=== PATIENT | female | born 1985 | race Caucasian/White ===

== ENCOUNTER 2021-01-10 10:08 | Emergency (ER) | payer OTHER, SELFPAY ==
[2021-01-10 10:16] VITALS: BP 122/54; PULSE 73; RESP 14; TEMP 36.6; O2SAT 100
--- NOTE | 2021-01-10 10:31 | ED.EAR ---
HPI - Ear Problem General Chief complaint: Ear Stated complaint: Ear Pain/Fever Source: patient Mode of arrival: ambulatory Limitations: no limitations History of Present Illness HPI Narrative: Patient reports left ear pain with drainage x 1 day. Reports sore throat, fever, chills and body aches. Reports lost of taste. Patient reports sent home from work with a fever on . She reports vomiting x1. She denies Covid vaccination. She denies known exposure. MD Complaint: other (Sore throat, chills, body aches, fever) Related Data Home Medications Medication Instructions Recorded Confirmed aspirin [Adult Low Dose Aspirin] 81 mg PO DAILY 01/10/21 01/10/21 fluoxetine [Prozac] 60 mg PO DAILY 01/10/21 01/10/21 Allergies Allergy/AdvReac Type Severity Reaction Status Date / Time No Known Allergies Allergy Verified 01/10/21 10:24 Review of Systems Review of Systems: CONSTITUTIONAL: Reports fever, chills, or sweats. EYES: Denies visual changes, redness, or discharge. ENT: Reports congestion, sore throat, and otalgia. Reports loss of taste. CARDIOVASCULAR: Denies chest pain, palpitations, or edema. RESPIRATORY: Denies cough or dyspnea. GASTROINTESTINAL: Denies abdominal pain, reports nausea, and vomiting x1 GENITOURINARY: Denies dysuria or hematuria. SKIN: Denies rash or itching. MUSCULOSKELETAL: Denies back pain, joint pain, or myalgia. NEUROLOGIC: Denies headache, numbness, dizziness, or weakness. PSYCHIATRIC: Denies anxiety or depression. [facility] Past Medical History Medical History No significant past medical history Surgical History Surgical History No significant past surgical history Social History Social History (Updated 01/10/21 @ 10:49 by FRANK Elizabeth) Smoking status: Current every day smoker Alcohol use details: occassional Substance use: never Living arrangements: with family Occupation/Education: occupation Comments At the time of signature, I have reviewed and agree with nursing past medical, surgical, social, and family history unless otherwise noted. Please see nursing chart for further information. There is no relevant family history pertinent to the presenting complaint. Exam Narrative: GENERAL: Well-appearing, well-nourished, and in no acute distress. HEAD: Normocephalic, atraumatic. EYES: EOMI. No redness or drainage. Conjunctiva are normal. ENT: Mucous membranes pink and moist. Nares clear. No rhinorrhea. TMs normal bilaterally. Throat mild erythema. Uvula midline. NECK: AROM. Supple. No lymphadenopathy. CHEST: No respiratory distress. HEART: Regular rate and rhythm. MUSCULOSKELETAL: No bony tenderness. EXTREMITIES: Normal range of motion. No edema. SKIN: Warm, dry, no rash. NEURO: No focal deficits. Alert and oriented x3. Gait steady. PSYCH: Normal affect. No signs of depression or anxiety. Course Vital Signs Vital signs: Vital Signs Temperature 36.6 C 01/10/21 10:16 Pulse Rate 73 01/10/21 10:16 Respiratory Rate 14 01/10/21 10:16 Blood Pressure 122/54 L 01/10/21 10:16 Pulse Oximetry 100 01/10/21 10:16 Temperature 36.6 C 01/10/21 10:16 Pulse Rate 73 01/10/21 10:16 Respiratory Rate 14 01/10/21 10:16 Blood Pressure 122/54 L 01/10/21 10:16 Pulse Oximetry 100 01/10/21 10:16 Reviewed Medical Decision Making MDM Narrative Medical decision making narrative: Patient's rapid Covid is negative. Covid PCR sent at this time. Patient is aware of quarantine. Discussed symptomatic treatment. Patient is stable for discharge home with outpatient follow-up as discussed. Differential Diagnosis Differential Diagnosis: Covid, viral illness, pharyngitis, otitis media Vital Signs Vital Signs: Vital Signs Temperature 36.6 C 01/10/21 10:16 Pulse Rate 73 01/10/21 10:16 Respiratory Rate 14 01/10/21 10:
[2021-01-11 19:11] LABS: SARS-CoV-2 RNA PCR Negative
== END 2021-01-10 11:24 | disposition home or self-care (01) ==
PROVIDERS: Emergency Provider Nurse Practitioner; PCP Nurse Practitioner
DX: J06.9 Acute upper respiratory infection, unspecified (principal); Z20.822 Contact with and (suspected) exposure to COVID-19; F17.200 Nicotine dependence, unspecified, uncomplicated
CPT/HCPCS: 87426; 99213; C9803; G0463; U0003; U0005

== ENCOUNTER 2021-04-20 10:26 | Emergency (ER) | payer OTHER, SELFPAY ==
[2021-04-20 10:36] VITALS: BP 122/74; PULSE 58; RESP 16; TEMP 36.3; O2SAT 100
--- NOTE | 2021-04-20 10:36 | ED.ABDPAIN ---
HPI - Abdominal Pain General Chief Complaint: Abdominal Pain Stated Complaint: possible stomach bug, abdominal pain, chills Time Seen by Provider: 04/20/21 10:37 Source: patient and RN notes reviewed History of Present Illness HPI narrative: Patient is a 35-year-old female who presents the urgent care with complaints of nausea, vomiting and abdominal pain since Monday. Patient states that she was at the [employer] and ate a salad which tasted terrible and within 30 minutes she was having extreme chills and abdominal pain with nausea. Patient states that she has a history of ileus and Crohn's. Patient has been taking Pepto-Bismol and Imodium. States that she did have a fever yesterday. No other acute complaints. No acute distress noted. Patient aware of the plan of care. Some parts of this dictation were generated by voice recognition software and may contain typographical and/or grammatical inaccuracies. Related Data Home Medications Medication Instructions Recorded Confirmed fluoxetine [Prozac] 60 mg PO DAILY 01/10/21 01/10/21 famotidine 20 mg PO DAILY 04/20/21 04/20/21 gabapentin 600 mg PO TID 04/20/21 04/20/21 Allergies Allergy/AdvReac Type Severity Reaction Status Date / Time No Known Allergies Allergy Verified 04/20/21 10:45 Review of Systems Review of Systems: CONSTITUTIONAL: Denies fever, chills, or sweats. EYES: Denies visual changes, redness, or discharge. ENT: Denies rhinorrhea, congestion, sore throat, or otalgia. CARDIOVASCULAR: Denies chest pain, palpitations, or edema. RESPIRATORY: Denies cough or dyspnea. GASTROINTESTINAL: Reports of nausea, vomiting, diarrhea and abdominal pain/cramping GENITOURINARY: Denies dysuria or hematuria. SKIN: Denies rash or itching. MUSCULOSKELETAL: Denies back pain, joint pain, or myalgia. NEUROLOGIC: Denies headache, numbness, or weakness. All other systems reviewed are negative, except as documented in HPI. [facility] Past Medical History Medical History No significant past medical history Surgical History Surgical History No significant past surgical history Social History Social History (Updated 12/05/21 @ 10:49 by Latasha Brownlee, [facility]) Smoking status: Current every day smoker Alcohol use details: occassional Substance use: never Comments At the time of my signature, I reviewed and agree with the nursing past medical, surgical, social, and family history. There is no relevant family history pertinent to the patient complaint. Exam Narrative: GENERAL: This is a well-nourished, well-developed patient, in no apparent distress. HEAD: normocephalic, atraumatic. EYES: PERRL. Sclera clear/white. Vision is grossly intact. EARS: External ears normal NOSE: External nose normal with no obvious nasal discharge, nares without redness, no rhinorrhea. THROAT: Mucous membranes moist NECK: Neck supple CARDIOVASCULAR: Regular rate and rhythm without murmurs, gallops, or rubs. RESPIRATORY: Clear to auscultation. Breath sounds equal bilaterally. No wheezes, rales, or rhonchi. GASTROINTESTINAL: Diffuse abdominal tenderness more focused to mid abdomen, guarding, hyperactive bowel sounds, active vomiting and diarrhea SKIN: warm, intact with no suspicious lesions or rash, good texture and turgor. NEURO: awake, alert, and oriented to person, place and time. There were no obvious focal neurologic abnormalities. EXTREMITIES: No clubbing, cyanosis, or edema. Course Course Level of Care: Express Care Visit Vital Signs Vital signs: Vital Signs Temperature 97.3 F L 04/20/21 10:36 Pulse Rate 58 L 04/20/21 10:36 Respiratory Rate 16 04/20/21 10:36 Blood Pressure 122/74 04/20/21 10:36 Pulse Oximetry 100 04/20/21 10:36 Temperature 97.3 F L 04/20/21 10:36 Pulse Rate 58 L 04/20/21 10:36 Respiratory Rate 16 04/20/21 10:36 Bloo
== END 2021-04-20 10:58 | disposition short-term general hospital (02) ==
PROVIDERS: Emergency Provider Nurse Practitioner Family
DX: R10.9 Unspecified abdominal pain (principal); F17.200 Nicotine dependence, unspecified, uncomplicated
CPT/HCPCS: 99212; G0463

== ENCOUNTER 2024-12-16 02:17 | Emergency (ER) | payer OTHER, SELFPAY ==
--- OUTSIDE RECORDS SUMMARY | 2023-11-06 07:00 | XMS_ITS ---
Author Organization [facility] Address [address] [place] [address] Care Team Providers Care Carton Forming Machine Operator Name Role Phone Eros Bennett Primary Care Provider [phone] Paige Garcia Unavailable [phone] Moraima George Unavailable [phone] REASON FOR VISIT CRU - Est Psych last seen in 2021, recent SA Encounters Encounter Location Date Provider Diagnosis [address] [place] [address] 11/06/2023 Moraima George Plan Of Treatment No Information Progress Notes * Michelle REALsDOB:1985 (39 yo F)Acc No.[id number]:11/06/2023 UNLOCKED PROGRESS NOTE Patient: Norma BOOTHE Provider: Ian George, DNP, POWER CRANE OPERATOR, SPECIAL CRIMES INVESTIGATOR-C :1985 A ge:38 Y S ex:Female Date:11/06/2023 Address:[address] [place], [place] [id number] Pcp:Eros Bennett Subjective: * Chief Complaints: * 1 . CRU - Est Psych last seen in 2021, recent SA. * Medical History: Objective: * Vitals: Assessment: Plan: * Treatment: * * Electronic signature of Julio George , [id number] on 12/16/2024 at 02:19 AM SENIOR SOFTWARE QA ANALYST Sign off status: Pending * Provider: Ian George DNP, POWER CRANE OPERATOR, SPECIAL CRIMES INVESTIGATOR-C Date: 0 11/06/2023 Generated for Printing/Faxing/eTransmitting on: 02/16/2024 02:19 AM SENIOR SOFTWARE QA ANALYST
--- NOTE | ~2024-12-16 | XR_ITS ---
Examination: XR chest 2V Clinical History: sob Comparison: None Technique: PA and Lateral Findings: Cardiomediastinal silhouette normal size and configuration. Lungs clear. No acute bony abnormality. IMPRESSION: 1. No acute cardiopulmonary findings. Reviewed, dictated and finalized at location R. WORKER
--- OUTSIDE RECORDS SUMMARY | 2024-12-16 02:19 | XMS_ITS | Clinical Summary ---
Author Organization [facility] Address [address] [place] [address] Care Team Providers Care Enterprise Analyst Name Role Phone Jaquelin Chiang Unavailable [phone] Allergies Active Allergy Reactions Criticality Noted Date Comments Cat Dander Rhinitis Low 07/15/2016 Pollen Extracts Rhinitis Low 07/15/2016 Medications gabapentin (NEURONTIN) 600 mg tablet Take 1 tablet (600 mg total) by mouth 3 (three) times a day 2 8 Active aspirin 81 mg enteric coated tablet Take by mouth 0 Active albuterol HFA (PROVENTIL HFA,VENTOLIN HFA,PROAIR HFA) 90 mcg/actuation inhaler 3 Active ofloxacin (FLOXIN) 0.3 % otic solution 3 Active sertraline (ZOLOFT) 25 mg tabletIndication s:Major depressive disorder with single episode, in full remission Take 1 tablet (25 mg total) by mouth daily 90 tablet 4 3 Active clobetasoL (TEMOVATE) 0.05 % external solutionIndicati ons:Dermatosis of the Scalp Apply topically 2 (two) times a day 50 mL 2 3 Active clindamycin (CLEOCIN T) 1 % lotionIndication s:Hidradenitis suppurativa Apply topically 2 (two) times a day As needed for painful cysts 60 mL 3 3 Active triamcinolone (KENALOG) 0.5 % ointment Apply topically 2 (two) times a day APPLY TO AFFECTED AREA 3 Active ketoconazole (NIZORAL) 2 % shampoo SHAMPOO DAILY LEAVE ON FOR 5-10 MINUTES, THEN RINSE 120 mL 4 Active ibuprofen (ADVIL,MOTRIN) 800 mg tablet TAKE 1 TABLET BY MOUTH EVERY 6 HOURS NEEDED FOR PAIN. 30 tablet 4 Active Active Problems Problem Noted Date Diagnosed Date Affective psychosis 02/13/2023 Constipation 02/13/2023 Neuropathy 02/13/2023 Neuropathy of both upper extremities 02/13/2023 Obesity (BMI 30.0-34.9) 02/13/2023 Tobacco dependence 02/13/2023 Anxiety disorder 02/13/2023 PTSD (post-traumatic stress disorder) 09/06/2021 Assessment & Plan (09/06/2021 11:33 AM CDT): THC has worked for her condition before Chronic pain syndrome 09/06/2021 Assessment & Plan (09/06/2021 11:33 AM CDT): Continue gabapentin Foot sprain, left, initial encounter 06/07/2021 Assessment & Plan (06/07/2021 1:41 PM CDT): Needs extend time to help recover Instructed to continue boot and icing it She understands and will continues this Major depressive disorder wi th single episode, in full remission 04/02/2021 Assessment & Plan (09/06/2021 11:33 AM CDT): Will contnue prozac Refilling THC medical card Assessment & Plan (04/02/2021 1:58 PM ANTIQUE DEALER): Takes prozac 20 mg Also uses medical THC for sleep Right carpal tunnel syndrome 01/11/2021 Assessment & Plan (01/11/2021 1:45 PM ANTIQUE DEALER): By EMG nerve conduction study the patient has moderate to severe median neuropathy at the wrist with the intact ulnar nerve. Would recommend carpal tunnel release as she has had progressive symptoms over a year and is now developing some motor weakness in the hand which may be less reversible. She was advised the risks of the procedure including infection, incisional numbness, seroma hematoma formation, neurovascular compromise, damage to the median nerve/recurrent branch of the median nerve, blood loss blood clots, keloid formation wound dehiscence, medical and anesthetic risks including is willing to proceed. Crohn's disease with complication 07/18/2018 Overview (01/11/2021): Dx in 2011 Encounter for ultrasound 07/18/2018 Hx of drug abuse 07/18/2018 Overview (01/11/2021): Cocaine use Marijuana use 07/18/2018 Rh negative state in antepartum period 9 Dysthymia 05/24/2016 Resolved Problems Problem Noted Date Diagnosed Date Resolved Date High ankle sprain, right, initial encounter 05/31/2021 05/31/2021 Hx of myocardial infarction 07/18/2018 06/17/2021 Immunizations Immunization Administration Dates Next Due DTP 09/27/1991, 0,07/14/1989, 7,04/18/1985 Hep B, Adolescent or Pediatric 05/20/1996,1995,09/20/1995 Influenza, Unspecified 05/05/2022(Deferr ed: Patient Refused),12/07/2021(Deferred: Patient Refused),04/02/2021(Deferred: Patient Refused) MMR 09/27/1991,09/08/1989 OPV 10/12/1989, 0,04/22/1986, 6 Pneumococcal Polysaccharide PPV23 12/02/2013 Td, adsorbed 08/30/1999 Tdap 07/16/2018 Surgical History Surgery Date Site/Laterality Comments TONSILLECTOMY COLONOSCOPY UPPER GASTROINTESTINAL ENDOSCOPY CARPAL TUNNEL RELEASE 02/02/2021 Right Medical History Medical History Date Comments Myocardial infarction (HCC) In t he setting of cocaine abuse Anxiety PTSD (post-traumatic stress disorder) Bipolar affective disorder (HCC) Hypertension Crohn's disease (HCC) Family History Medical History Relation Name Comments Cancer Father Coronary artery disease Father Prostate cancer Father Coronary artery disease Mother Heart disease Mother Hyperlipidemia Mother Relation Name Status Comments Father Alive Mother Alive Social History Tobacco Use Types Packs/Day Years Used Date Smoking Tobacco: Every Day Cigarettes 0.8 3 Smokeless Tobacco: Never Tobacco Cessation:Ready to Q uit: Not Asked; Counseling Given: Not Answered Alcohol Use Standard Drinks/Week Comments Not Currently 0 (1 standard drink = 0.6 oz pur e alcohol) AUDIT-C Answer Date Recorded Frequency of Alcohol Consumption Not on file 08/01/2022 Q2: How many drinks containi ng alcohol do you have on a typical day when you are drinking? Patient does not drink Frequency of Binge Drinking Not on file 07/08 PHQ-2 Answer Date Recorded PHQ-2 Total Score (If total score is 3 or more points, staff should administer the PHQ-9) 3 08/01/2022 Hunger Vital Sign Answer Date Recorded Within the past 12 months, y ou worried that your food would run out before you got the money to buy more. Sometimes true Within the past 12 months, t he food you bought just didn't last and you didn't have money to get more. Sometimes true Personal Safety Answer Date Recorded Have you ever been in or are you currently in a harmful physical or emotional relationship or is someone making you feel afraid or unsafe? Denies 05/06/2022 Comments No Sex and Gender Information Value Date Recorded Sex Assigned at Not on file Legal Sex Female 10:41 AM ANTIQUE DEALER Gender Identity Not on file Sexual Orientation Bisexual 04/19/2021 11 :03 AM CDT Sexual Orientation Lesbian 04/19/2021 11 :03 AM CDT Last Filed Vital Signs Vital Sign Reading Time Taken Comments Blood Pressure 110/90 02/13/2023 4:53 PM ANTIQUE DEALER Pulse 110 02/13/2023 4:53 PM ANTIQUE DEALER Temperature 36.7 C (98.1 F) 02/13/2023 4:53 PM ANTIQUE DEALER Respiratory Rate 20 02/13/2023 4:53 PM ANTIQUE DEALER Oxygen Saturation 98% 02/13/2023 4:53 PM ANTIQUE DEALER Inhaled Oxygen Concentration - - Weight 72.6 kg (160 lb) 02/13/2023 4:53 PM ANTIQUE DEALER Height 160 cm (5' 3) 02/13/2023 4:53 PM ANTIQUE DEALER Body Mass Index 28.34 02/13/2023 4:53 PM ANTIQUE DEALER Plan of Treatment Health Maintenance Due Date Last Done Comments Breast Cancer Screening-Mammogram 1985 Cervical Cancer Screening 1985 Hepatitis C Screening 1985 HPV Vaccines (1 - 3-dose SCD M series) 06/03/2011 Pneumococcal vaccine <65 (2 of 2 - PCV) 12/02/2014 12/02/2013 Regular Well Visit/Exam 18-64 04/02/2022 04/02/2021 Influenza Vaccine (#1) 2024 DTaP/Tdap/Td Vaccine (6 - Td or Tdap) 07/16/2028 07/16/2018, 08/30/1999, 09/27/1991, Additional history exists Hepatitis B Screening Completed 05/20/1996 , 11/29/1995, 09/20/1995 Depression Screening Discontinued 08/01/2022, 05/05/2022, 05/05/2022, Additional history exists Varicella Vaccines Discontinued Insurance [employer] [facility] [place] [employer] [place] Care Teams Enterprise Analyst Relationship Specialty [place] [address] [address] Physician Sh[employer] Orthopedic Surgery 02/02/21
--- OUTSIDE RECORDS SUMMARY | 2024-12-16 02:20 | XMS_ITS | Patient Health Record ---
Author Organization [facility] Address [address] [place] [address] Care Team Providers Care Melt Superintendant Name Role Phone Ricardo Atkins Primary Care Provider Results Component Value Reference Range Notes X ray : Dental, PA - First Reviewed date:01/09/2024 08:32:22 AM Interpretation: Performing Lab: Notes/Report: Reason For Referral No Information Social History Tobacco Use: Social History Observation Description Date Details (start date - stop date) Current Smoker NA - NA Social History Tobacco Use: Social Info Question Answer Notes Tobacco Control (Standard) Tobacco use: Current smoker Vital Signs Blood pressure diastolic 84 mm Hg 01/09/2024 Blood pressure systolic 129 mm Hg 01/09/2024 Encounters Encounter Location Date Provider Diagnosis [address] [address] 01/09/2024 Ricardo Atkins Dental examination Z01.20 and Caries K02.9 Assessments Encounter Date Diagnosis (ICD Code) Assessment Notes Treatment Notes Treatment Clinical Notes Section Notes 01/09/2024 Caries (ICD-10 - K02.9) 01/09/2024 Dental examination (ICD-10 - Z01.20) Plan Of Treatment No Information Insurance Providers Payer Name Payer Address Payer Phone Subscriber Number Group Number Insured Name Patient Relationship to Insured Coverage Start Date [facility]age End Date [facility] [address] [place] [address] [id number] Norma Reese Self - patient is the insured Medical (General) History Medical History History ICD Code Substance use disorder
--- OUTSIDE RECORDS SUMMARY | 2024-12-16 02:20 | XMS_ITS ---
Author Organization [facility] Address [address] [place] [address] Phone Care Team Providers Care Animal Care Service Worker Name Role Phone Castillo Arteaga MD Primary Care Provider [phone] [facility] Status:Enrolled (Active) Start date:03/06/2024 Enrollment date:03/06/2024 Related social drivers of health:Social Connections, Alcohol Use, Tobacco Use, Financial Resource Strain, Depression, Stress, Physical Activity, Food Insecurity, Transportation Needs, Housing Stability, Utilities Continued Care and Services Coordination
--- OUTSIDE RECORDS SUMMARY | 2024-12-16 02:20 | XMS_ITS | Data Portability ---
Author Organization [facility] Address [address] [place] [address] Assessment Encounter Date Assessment Date Assessment LastModified by Organization Details LastModified Time 06/24/2014 06/24/[address] Sumner for her Lft inguinal abscess / [email or web address] Not available 06/24/2014 12:06:10 07/18/2014 07/18/2014 STI screening all labs reviewed with pt aware of their nature and indications for repeat testing--Pt opted to RTO in 3 mos and have tests repeated as ordered. Copies of all labs printed to patient at her request. [email or web address] Not available 07/18/2014 15:18:01 02/09/2018 02/09/2018 32yo at unknown gestation here for initial OB visit, no acute issues. [email or web address] Not available 02/09/2018 23:13:01 Plan of Treatment Reminders Order Date Submit Date Provider Last Modified By Organization Details Last Modified Time Details Appointments None recorded. Lab hsv (1+2) igg Ab, serum 2024 025 [facility] (Lab), [address] [place], [address], 5 08:11:21 urinalysis , dipstick 2024 025 [email or web address] In-Office Order, Internal Use Only DO Not Attach Compendium DO Not Attach Compendium, Do Not Delete/merge, [id number] 5 12:04:50 vaginal pathogens panel, LOCO+probe, vaginal fluid 2024 025 [facility], [address], [address], [place], [address], 5 07:14:25 test, urine 2018 019 [email or web address] In-Office Order, Internal Use Only DO Not Attach Compendium DO Not Attach Compendium, Do Not Delete/merge, [id number] 9 16:52:07 urinalysis , dipstick 2018 019 [email or web address] In-Office Order, Internal Use Only DO Not Attach Compendium DO Not Attach Compendium, Do Not Delete/merge, [id number] 9 16:52:07 type + screen, serum 2018 019 [facility] (Lab), [address], [place], [address], 9 23:25:14 CBC w/ auto diff 2018 019 [facility] (Lab), [address], [place], [address], 9 19:27:22 hemoglobin S (hbs), presence, blood 2018 019 [facility] (Lab), [address], [place], [address], 9 16:10:36 HIV (1+2) Ab screen, serum 2018 019 [facility] (Lab), [address], [place], [address], 9 08:19:06 RPR (rapid plasma reagin), serum 2018 019 [facility] (Lab), [address], [place], [address], 9 08:18:59 HBsAg (hepatitis B surface Ag), serum 2018 019 [facility] (Lab), [address], [place], [address], 9 08:19:00 CT + NG + TV, DNA, urine/swab 2018 019 [facility] (Lab), [address], [place], [address], 9 16:15:25 drug screen, urine 2018 019 [facility] (Lab), [address], [place], [address], 9 20:42:37 cf (cystic fibrosis) profile 2018 019 [facility] (Lab), [address], [place], [address], 9 19:08:24 culture, urine 2018 019 [facility] (Lab), [address], [place], [address], 9 15:12:35 rubella igg Ab screen, serum 2018 019 [facility] (Lab), [address], [place], [address], 9 07:11:09 pap, IG + CT/NG + reflex HPV (16+18) 2018 019 [facility] (Lab), [address], [place], [address], 9 13:12:28 HIV (1+2) Ab screen, serum 2014 016 [email or web address] [facility], [address] [facility], [address], [address], 6 10:55:13 hsv (1+2) igg, serum 2014 016 [email or web address] [facility], [address], [place], [address], 6 10:55:24 CT + NG + TV, DNA, urine/swab 2014 016 [facility], [address] [facility] [address], [place], [address], 6 10:55:48 RPR (rapid plasma reagin), serum 2014 016 [email or web address] [facility], [address] [facility] [address], [address], [place], [address], 6 10:55:57 hepatitis panel (A+B+C), acute, serum 2014 016 [email or web address] [facility], [address] [facility], [address], [place], [address], 6 10:56:04 pap, IG + CT/NG/TV + reflex HR HPV if ASC-U, ASC-H, LSIL, HSIL, PARISH 2014 015 MANNY [facility], [address], [place], [address], 5 14:24:07 hsv (1+2) igg, serum 2014 015 MANNY [facility], [address] [facility] [address], [place], [address], 5 17:34:49 HIV (1+2) Ab screen, serum 2014 015 MANNY [facility], [address], [place], [address], 5 17:49:58 RPR (rapid plasma reagin), serum 2014 015 [facility], [address] [facility], [address], [place], [address], 5 17:30:35 hepatitis panel (A+B+C), acute, serum 2014 015 [facility], [address] [facility], [address], [place], [address], 5 18:01:24 Referral None recorded. Procedures None recorded. Surgeries None recorded. Imaging US, obstetric, 1st trimester - uncertain LMP; early u/s for dating/via bility 2018 019 [email or web address] Not available 9 15:04:16 Medication Orders ondansetro n HCl 4 mg tablet 2018 019 INTERFACE [id number], [address], [place], [id number], 9 17:13:01 promethazi ne 12.5 mg tablet 2018 019 INTERFACE [facility] #[id number], [address], [place], [id number], 9 17:12:59 28 mg iron-800 mcg tablet 2018 019 INTERFACE [facility] #[id number], [address], [place], [id number], 9 17:13:00 Patient TargetsNo targets recorded. Patient Instructions Encounter Date Encounter Id Patient Instructions Last Modified By Organization Details Last Modified Time 06/24/2014 [id number] skin abscess: care instructions [email or web address] Not available 06/24/2014 17:56:44 08/08/2024 [id number] A healthy lifestyle: care instructions Not available 08/08/2024 12:04:50 - You were teste d for gonorrhea, chlamydia, trichomonas, syphilis, HIV, BV, and yeast. You will receive a call with results in 2-3 days. - Your urine test did not show a UTI and your test was negative. -Please return to [facility] if you develop any lesions. - Go to the ER if you develop a fever, abdominal pain, or abnormal vaginal bleeding. Not available 08/08/2024 12:05:52 08/20/2024 [id number] genital herpes: care instructions [email or web address] Not available 08/20/2024 17:00:54 A healthy lifestyle: care instructions [email or web address] Not available 08/20/2024 17:00:54 Take medicines exactly as prescribed. If your doctor prescribed antibiotics, take them as directed. Don't stop taking them just because you feel better. You need to take the full course of antibiotics. Tell your sex partner or partners that they will need treatment. For certain STIs, your doctor may be able to prescribe treatment for any partners also. Don't have sexual contact while you have symptoms of an STI or are being treated for an STI. Don't douche. Douching changes the normal balance of bacteria in your vagina. It may increase the risk of spreading the infection to your uterus or other reproductive organs. How can you prevent it? Here are some ways to help prevent STIs: Limit your sex partners. Sex with one partner who has sex only with you can reduce your risk of getting an STI. Talk with your partner or partners about STIs before having sex. Find out if they are at risk for an STI. It's possible to have an STI and not know it. Wait to have sex with a new partner until you've each been tested. Don't have sex if you have symptoms of an infection or if you're being treated for an STI. Use a condom every time you have sex. If you had sex without a condom, ask your doctor if taking a preventive medicine is recommended. It may help prevent certain STIs if it's taken within 24 to 72 hours after unprotected sex. Don't share sex toys. But if you do share them, use a condom and clean the sex toys between each use. Don't feel pressure to have sex. It's okay to say no anytime you want to stop. Make sure you feel safe with your partner or partners. If you don't, talk with an adult you trust. [email or web address] Not available 08/20/2024 17:06:55 Reason for Referral None Reported. Results Created Date Observation Date Name Description Value Unit Range Abnormal Flag Note LastModifiedBy Organization Detail LastModifiedTime 02/09/19 19 02/09/2018 CBC w/ auto diff WBC 10.7 K/uL 3.4-10 .8 Not Available [facility] (Lab) [address] [place], [address], 02/09/2018 19:27:22 02/09/1902/09/2018 CBC w/ auto diff red blood count 3.7 M/uL 4.2-5. 4 low Not Available [facility] (Lab) [address] [place], [address], 02/09/2018 19:27:22 02/09/1902/09/2018 CBC w/ auto diff hemoglobin 11.3 g/dL 11.5-1 5.5 low Not Available [facility] (Lab) [address], [place], [address], 02/09/2018 19:27:22 02/09/1902/09/2018 CBC w/ auto diff hematocrit 33.4 % 36.0-4 8.0 low Not Available [facility] (Lab) [address] [place], [address], 02/09/2018 19:27:22 02/09/1902/09/2018 CBC w/ auto diff MCV 91 fL 80-95 Not Available [facility] (Lab) [address] [place], [address], 02/09/2018 19:27:22 02/09/1902/09/2018 CBC w/ auto diff MCH 31 pg 27-32 Not Available [facility] (Lab) [address] [place], [address], 02/09/2018 19:27:22 02/09/1902/09/2018 CBC w/ auto diff MCHC 34 g/dL 32-36 Not Available [facility] (Lab) [address] [place], [address], 02/09/2018 19:27:22 02/09/19 19 02/09/2018 CBC w/ auto diff platelets 328 K/uL 155-37 9 Not Available [facility] (Lab) [address] [place], [address], 02/09/2018 19:27:22 02/09/1902/09/2018 CBC w/ auto diff RDW 13.3 % 11.5-1 4.5 Not Available [facility] (Lab) [address] [place], [address], 02/09/2018 19:27:22 02/09/1902/09/2018 CBC w/ auto diff MPV 10.6 fL 8.9-12 .7 Not Available [facility] (Lab) [address] [place], [address], 02/09/2018 19:27:22 02/09/1902/09/2018 CBC w/ auto diff neutrophils absolute 7.8 K/uL 1.4-7. 0 high Not Available [facility] (Lab) [address], [place], [address], 02/09/2018 19:27:22 02/09/1902/09/2018 CBC w/ auto diff lymphs (absolute) 1.9 K/uL 0.7-3. 1 Not Available [facility] (Lab) [address] [place], [address], 02/09/2018 19:27:22 02/09/1902/09/2018 CBC w/ auto diff monocytes (absolute) 0.7 K/uL 0.1-0. 9 Not Available [facility] (Lab) [address] [place], [address], 02/09/2018 19:27:22 02/09/1902/09/2018 CBC w/ auto diff eos (absolute) 0.2 K/uL 0.0-0. 4 Not Available [facility] (Lab) [address] [place], [address], 02/09/2018 19:27:22 02/09/1902/09/2018 CBC w/ auto diff baso (absolute) 0.0 K/uL 0.1-0. 3 low Not Available [facility] (Lab) [address] [place], [address], 02/09/2018 19:27:22 02/09/1902/09/2018 CBC w/ auto diff neut % 73.3 % 40.0-7 4.0 Not Available [facility] (Lab) [address] [facility], [place], [address], 02/09/2018 19:27:22 02/09/1902/09/2018 CBC w/ auto diff lymphs % 18.2 % 14.0-4 6.0 Not Available [facility] (Lab) [address] [facility], [place], [address], 02/09/2018 19:27:22 02/09/1902/09/2018 CBC w/ auto diff mono % 6.1 % 4.0-12 .0 Not Available [facility] (Lab) [address] [place], [address], 02/09/2018 19:27:22 02/09/1902/09/2018 CBC w/ auto diff eos % 2 % <=5 Not Available [facility] (Lab) [address] [place], [address], 02/09/2018 19:27:22 02/09/1902/09/2018 CBC w/ auto diff baso % 0.4 % 0.1-1. 1 Not Available [facility] (Lab) [address] [place], [address], 02/09/2018 19:27:22 02/09/1902/09/2018 drug scree n, urine urine phencylclind in NEGATI VE negati ve Not Available [facility] (Lab) [address] [place], [address], 02/09/2018 20:42:37 02/09/1902/09/2018 drug scree n, urine urine cannabinoids POSITI VE negati ve abnormal Not Available [facility] (Lab) [address] [place], [address], 02/09/2018 20:42:37 02/09/1902/09/2018 drug scree n, urine urine amphetamines NEGATI VE negati ve Not Available [facility] (Lab) [address] [place], [address], 02/09/2018 20:42:37 02/09/1902/09/2018 drug scree n, urine urine cocaine NEGATI VE negati ve Not Available [facility] (Lab) [address] [facility], [place], [address], 02/09/2018 20:42:37 02/09/1902/09/2018 drug scree n, urine urine opiates NEGATI VE negati ve Not Available [facility] (Lab) [address] [place], [address], 02/09/2018 20:42:37 02/09/1902/09/2018 drug scree n, urine urine barbiturates NEGATI VE negati ve Not Available [facility] (Lab) [address] [place], [address], 02/09/2018 20:42:37 02/09/1902/09/2018 drug scree n, urine urine benzo diazepin NEGATI VE negati ve Not Available [facility] (Lab) [address] [place], [address], 02/09/2018 20:42:37 02/09/1902/09/2018 drug scree n, urine udrscom This test provi renu only a scree snow hailey tical test resul t. A more speci fic alter liudmila chemi denice metho d must be order ed to obtai n a confi rmed hailey tical resul t. Not Available [facility] (Lab) [address] [place], [address], 02/09/2018 20:42:37 02/09/1902/10/2018 rubel la igg Ab scree n, serum rubella antibodies, IgG 3.83 index immune >0.99 Non-i mmune <0.90 Equiv ocal 0.90 - 0.99 Immun e >0.99 Not Available [facility] (Lab) [address] [place], [address], 02/10/2018 07:11:09 02/09/1902/10/2018 RPR (rapi d plasm a reagi n), serum RPR Non Reacti ve non reacti ve Not Available [facility] (Lab) [address] [place], [address], 02/10/2018 08:18:59 02/09/1902/10/2018 HBsAg (hepa titis B surfa ce Ag), serum HBsAg screen Negati ve negati ve Not Available [facility] (Lab) [address] [place], [address], 02/10/2018 08:19:00 02/09/1902/10/2018 HIV (1+2) Ab scree n, serum HIV 4TH generation Non Reacti ve non reacti ve Not Available [facility] (Lab) [address] [place], [address], 02/10/2018 08:19:06 02/09/1902/10/2018 hemog lobin S (hbs) , prese nce, blood Hb solu + rflx frac Negati ve negati ve Not Available [facility] (Lab) [address] [place], [address], 02/10/2018 16:10:36 02/09/1902/10/2018 type + scree n, serum ABO/Rh typing A Rh Negati ve Not Available [facility] (Lab) [address] [place], [address], 02/10/2018 23:25:14 02/09/1902/10/2018 type + scree n, serum id-mts antbdy screen POSITI VE Not Available [facility] (Lab) [address] [place], [address], 02/10/2018 23:25:14 02/09/19 19 02/10/2018 type + scree n, serum blood bank notes Futher workup needed for Ab ID Not Available [facility] (Lab) [address] [place], [address], 02/10/2018 23:25:14 02/09/1902/12/2018 cultu re, urine urine culture, routine Final report Not Available [facility] (Lab) [address] [place], [address], 02/12/2018 15:12:35 02/09/1902/12/2018 cultu re, urine result 1 MUG Mixed uroge nital devang 25,00 0-50, 000 colon y formi ng units per mL Not Available [facility] (Lab) [address] [facility], [place], [address], 02/12/2018 15:12:35 02/09/1902/12/2018 CT + NG + TV, DNA, urine /swab chlamydia by LOCO Negati ve negati ve Not Available [facility] (Lab) [address] [place], [address], 02/12/2018 16:15:25 02/09/1902/12/2018 CT + NG + TV, DNA, urine /swab gonococcus by LOCO Negati ve negati ve Not Available [facility] (Lab) [address] [facility], [place], [address], 02/12/2018 16:15:25 02/09/19 19 02/12/2018 CT + NG + TV, DNA, urine /swab trich vag by LOCO Negati ve negati ve Not Available [facility] (Lab) [address], [place], [address], 02/12/2018 16:15:25 02/09/19 19 02/13/2018 pap, IG + CT/NG + refle x HPV (16+1 8) diagnosis: [facility] NEGAT YOSI FOR INTRA EPITH ELIAL LESIO N AND MALELDON YEBOAH . Perfo rmed at: WB Not Available [facility] (Lab) [address], [place], [address], 02/13/2018 13:12:28 02/09/19 19 02/13/2018 pap, IG + CT/NG + refle x HPV (16+1 8) specimen adequacy: [facility] Satis facto ry for evalu ation . Endoc ervic al and/o r squam ous metap lasti c cells (endo cervi denice compo nent) are prese nt. Perfo rmed at: WB Not Available [facility] (Lab) [address], [place], [address], 02/13/2018 13:12:28 02/09/19 19 02/13/2018 pap, IG + CT/NG + refle x HPV (16+1 8) clinician provided ICD10 [facility] Z34.9 0 Perfo rmed at: WB Not Available [facility] (Lab) [address], [place], [address], 02/13/2018 13:12:28 02/09/19 19 02/13/2018 pap, IG + CT/NG + refle x HPV (16+1 8) performed by: [facility] Eddy Rose , Cytot echno logis t (ASCP ) Perfo rmed at: WB Not Available [facility] (Lab) [address] [facility], [place], [address], 02/13/2018 13:12:28 02/09/19 19 02/13/2018 pap, IG + CT/NG + refle x HPV (16+1 8) Pap smear, 1 slide . Perfo rmed at: WB Not Available [facility] (Lab) [address] [place], [address], 02/13/2018 13:12:28 02/09/19 19 02/13/2018 pap, IG + CT/NG + refle x HPV (16+1 8) note: PAPSMR The Pap smear is a scree snow test desig radha to aid in the detec tion of ashwini ligna nt and malig nant condi tions of the uteri ne cervi x. It is not a diagn ostic proce dure and shoul d not be used as the sole means of detec ting cervi denice cance r. Both false -posi tive and false -nega tive repor ts do occur . . Perfo rmed at: WB Not Available [facility] (Lab) [address] [place], [address], 02/13/2018 13:12:28 02/09/19 19 02/13/2018 pap, IG + CT/NG + refle x HPV (16+1 8) test methodology: IGLPAP This liqui d based ThinP rep(R ) pap test was scree radha with the use of an image guide bernadette cason Perfo rmed at: WB Not Available [facility] (Lab) [address] [place], [address], 02/13/2018 13:12:28 02/09/19 19 02/13/2018 pap, IG + CT/NG + refle x HPV (16+1 8) HPV, high-risk Negati ve negati ve This high- risk HPV test detec ts thirt een high- risk types (16/1 8/31/ 33/35 /39/4 5/51/ 52/56 /58/5 9/68) witho ut diffe renti ation . . Perfo rmed at: =G Not Available [facility] (Lab) [address] [place], [address], 02/13/2018 13:12:28 02/09/19 19 02/14/2018 cf (cyst ic fibro sis) profi le CF, screen Commen t: RESUL TS: POSIT YOSI for one copy of the N1303 K mutat ion INTER PRETA TION: Hailey sis of the sampl e provi ded revea led one CF mutat ion; there fore, this indiv idual is at least a CF anali er. This resul t shoul d be inter prete d in the julio xt of the clini denice indic ation . COMME NTS: [facility] couns gilbert is recom america d to discu ss the poten tial clini denice and/o r repro ducti ve impli catio ns of this resul t, as well as recom menda tions for testi ng other famil y membe rs and, when appli cable , this indiv idual 's partn er. The detec tion rate varie s with ethni city, and the prese nce of a secon d, undet ected mutat ion in the CF gene canno t be ruled out. Mutat ion Detec tion Detec tion rates are based on mutat ion Rates among Ethni c frequ encie s in patie nts affec rhonda with Group s cysti c fibro sis. Among indiv idual s with an atypi denice or mild prese ntati on (e.g. conge nital absen ce of the vas defer ens, pancr eatit is) detec tion rates may vary from those provi ded here: Detec tion Ethni city Rate Danny nazi 97% Jewis h Cauca christian 90% (non- Hispa ally) Afric an-Am yvette n 69% Hispa ally 73% 55% This inter preta tion is based on the clini denice and famil y relat ionsh ip infor matio n provi ded and the curre nt under stand ing of the molec ular cleopatra ics of this condi tion. MUTAT IONS HAILEY ZED: G85E V520F W1282 X 2183A A to G R117H G542X N1303 K 2184d Susi R334W S549N 394de lTT 2789+ 5G to A R347H S549R 621+1 G to T 3120+ 1G to A R347P G551D 711+1 G to T 3659d elC A455E R553X 1078d elT 3849+ 10kbC to T Delta I507 R560T 1717- 1G to A 3876d Susi Delta F508 R1162 X 1898+ 1G to A 3905i nsT METHO DS/LI MITAT IONS: DNA is isola rhonda from the sampl e and teste d for the 32 CF mutat ions on the [employer] rs[employer] orm (Jennifer nex). Regio ns of the CFTR gene are ampli fied enzym atica lly and subje cted to a solut ion-p hase multi plex allel e-spe cific prime r exten juhi with subse quent hybri dizat ion to a bead array and fluor escen ce detec tion. Polym orphi sms F508C , I506V and I507V are inclu ded in this panel to rule out false posit yosi delta F508 homoz ygote s. Refle x testi ng of 5T is inclu ded in the panel for R117H inter preta tion. False posit yosi or negat yosi resul ts may occur for reaso ns that inclu de cleopatra ic varia nts, blood trans fusio ns, bone marro w trans plant ation , ron eous repre senta tion of famil y relat ionsh ips or conta minat ion of a sampl e with mater nal cells . REFER ENCES : 1. Updat es on Anali er Scree snow for Cysti c Fibro sis. (2011 ) Am J Ob Gynec ol 117(4 ):102 8-103 1 2. Estelle cash, et al. (2004 ) [facility] Med 6:387 -91 3. Mary hampton, et al. (2002 ) [facility] Med 4:379 -391 4. Preco ncept ion and prena susanna anali er scree snow for cysti c fibro sis: (2001 )ACOG .[facility] publi catio n Resul ts Relea sed By: Martin barriga, Ph.D. , [facility] tor Repor t Relea sed By: Kathleen Driscoll , MS, CGC, [facility] elor Not Available [facility] (Lab) [address] [place] [address], [address], 02/14/2018 19:08:24 02/09/19 19 02/14/2018 cf (cyst ic fibro sis) profi sp pdf . Not Available [facility] (Lab) [address] [place], [address], 02/14/2018 19:08:24 02/09/19 19 02/14/2018 cf (cyst ic fibro sis) profi sp comment: SPRCS The assay provi renu infor matio n inten ded to be used for anali er scree snow in adult s of repro ducti ve age, as an aid in newbo rn scree snow, and as a confi rmato ry test for anoth er medic ally estab lishe d diagn osis in newbo rns and child gal. The test is not indic ated for use in diagn ostic testi ng, pre-i mplan tatio n scree snow, or for any stand -cordelia e diagn ostic purpo ses witho ut confi rmati on by anoth er medic ally estab lishe d diagn ostic produ ct or proce dure. Not Available [facility]) [address], [place], [address], 02/14/2018 19:08:24 02/09/1902/09/2018 urina lysis , dipst ick Leukocytes Negati ve Not Available In-Office Order Internal Use Only DO Not Attach Compendium DO Not Attach Compendium, Do Not Delete/merge, [id number] 02/09/2018 16:22:43 02/09/1902/09/2018 urina lysis , dipst ick Nitrite negati ve Not Available In-Office Order Internal Use Only DO Not Attach Compendium DO Not Attach Compendium, Do Not Delete/merge, [id number] 02/09/2018 16:22:43 02/09/1902/09/2018 urina lysis , dipst ick Urobilinogen .2 Not Available In-Of fice Order Internal Use Only DO Not Attach Compendium DO Not Attach Compendium, Do Not Delete/merge, [id number] 02/09/2018 16:22:43 02/09/1902/09/2018 urina lysis , dipst ick Protein Negati ve Not Available In-Office Order Internal Use Only DO Not Attach Compendium DO Not Attach Compendium, Do Not Delete/merge, [id number] 02/09/2018 16:22:43 02/09/1902/09/2018 urina lysis , dipst ick pH 7.0 Not Available In-Office Order Internal Use Only DO Not Attach Compendium DO Not Attach Compendium, Do Not Delete/merge, [id number] 02/09/2018 16:22:43 02/09/1902/09/2018 urina lysis , dipst ick Blood Negati ve Not Available In-Office Order Internal Use Only DO Not Attach Compendium DO Not Attach Compendium, Do Not Delete/merge, [id number] 02/09/2018 16:22:43 02/09/1902/09/2018 urina lysis , dipst ick Specific Turon 1.020 Not Available In-Off ice Order Internal Use Only DO Not Attach Compendium DO Not Attach Compendium, Do Not Delete/merge, [id number] 02/09/2018 16:22:43 02/09/1902/09/2018 urina lysis , dipst ick Ketone Negati ve Not Available In-Office Order Internal Use Only DO Not Attach Compendium DO Not Attach Compendium, Do Not Delete/merge, [id number] 02/09/2018 16:22:43 02/09/1902/09/2018 urina lysis , dipst ick Bilirubin Negati ve Not Available In-Office Order Internal Use Only DO Not Attach Compendium DO Not Attach Compendium, Do Not Delete/merge, [id number] 02/09/2018 16:22:43 02/09/1902/09/2018 urina lysis , dipst ick Glucose Negati ve Not Available In-Office Order Internal Use Only DO Not Attach Compendium DO Not Attach Compendium, Do Not Delete/merge, [id number] 02/09/2018 16:22:43 02/09/1902/09/2018 urina lysis , dipst ick Appearance Clear Not Available In-Offi ce Order Internal Use Only DO Not Attach Compendium DO Not Attach Compendium, Do Not Delete/merge, [id number] 02/09/2018 16:22:43 02/09/19 19 02/09/2018 urina lysis , dipst ick Color Yellow Not Available In-Office Order Internal Use Only DO Not Attach Compendium DO Not Attach Compendium, Do Not Delete/merge, [id number] 02/09/2018 16:22:43 02/09/19 19 02/09/2018 pregn taniya test, urine HCG positi ve Not Available In-Office Order Internal Use Only DO Not Attach Compendium DO Not Attach Compendium, Do Not Delete/merge, [id number] 02/09/2018 16:22:28 08/09/19 25 08/13/2024 NUSWA B VAGIN ITIS PLUS (VG+) atopobium vaginae LOW - 0 score Not Available [facility] ([facility]) [address] [facility], [place], [address], 08/14/2024 07:14:24 08/09/19 25 08/13/2024 NUSWA B VAGIN ITIS PLUS (VG+) bvab 2 MODERA TE - 1 score Not Available [facility] ([facility]) [address] [facility], [place], [address], 08/14/2024 07:14:24 08/09/1908/13/2024 NUSWA B VAGIN ITIS PLUS (VG+) megasphaera 1 LOW - 0 score Calcu late total score by jake g the 3 indiv idual bacte rial vagin osis (BV) marke r score s toget her. Total score is inter prete d as follo ws: Total score 0-1: Indic ates the absen ce of BV. Total score 2: Indet ermin ate for BV. Addit ional clini denice data shoul d be evalu ated to estab rhoda a diagn osis. Total score 3-6: Indic ates the prese nce of BV. Not Available [facility] ([facility]) [address] [facility], [place], [address], 08/14/2024 07:14:24 08/09/19 25 08/13/2024 NUSWA B VAGIN ITIS PLUS (VG+) trich vag by LOCO NEGATI VE negati ve Not Available [facility] ([facility]) [address] [facility], [place], [address], 08/14/2024 07:14:24 08/09/19 25 08/13/2024 NUA B VAGIN ITIS PLUS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 Pt reports she wants to know how to proceed forward to protect herself from alhaji it. She denies any abdominal pain, open sores, vaginal itching, or abnormal discharge. Pt endorses a history of Crohn's disease and cysts. KRISTINA Nair Attn: [address] [place], [address], [facility] [place] 08/08/2024 19:31:41 08/20/2024 text/html ROS as noted in the HPI 39 year old female presents to IC with requests for screening for HSV 1 and 2. She states she has been with her partner for the past 13 years minus a 2 year break up. She states while she was in rehab for addiction, she did have sex with another person. She states her partner tested positive for HSV 1 and 2 recently. She states her partner had oral sex with her and the next day, her partner got a rash around her mouth, onto her nose and around her eyes. She denies any symptoms of rash, shortness of breath, chest pain, sores/lesion/blist ers, numbness/tingling, swelling, pain with intercourse, hematuria or dysuria or fever. MIERILLE MUNOZ NP Attn: [address] [place], [address], [facility] [place] 08/20/2024 19:02:46 OBGyn Episode Ob Episode Information Episode Created Date Number of Fetuses Patient Bloodtype Patient rh Status Prepregnancy Weight lbs Domestic Partner Domestic Partner Phone Father Name Abrasive Mixer Helper Status 02/09/19 19 1 A Negative DELETED Fetus Data First Name Last Name Admitted to NICU Weight (g) Sex Living Outcome Pediatric Complications Fetus ID Race Codes Race Delivery Type [id number] Problems Problem Notes Problem Name Start Date End Date Resolution Snomed Code Not e Nausea and vomiting [id number] Rx for ondansetron, promethazine given /4 Crohn's disease 25705443 stab le, no meds x3yrs; continue to monitor Anxiety 51334988 currently on fluoxetine & lorazepam prn Jarad Calculation Initial Jarad Date Initial Exam Date Initial Exam Provider Initial Ultrasound Date Last Menstrual Period Date Ultra Sound Weeks Gestation 08/12/2018 02/09/2018 [email or web address] 02/15/2018 11/05/2017 15 Eighteen To Twenty Week Jarad Update Ultra Sound Date Fundal Height At Umbil Quickening Date Ultra Sound Latest Weeks Gestation Final Jarad Confirmed By Final Jarad Confirmed Date Final Jarad Date Ultra Sound Latest Days Gestation 0 [email or web address] 02/16/2018 08/04/19 19 0 Menstrual History Last Menstrual Date Menses Monthly On Bcp Conception Prior Menses Frequency Hcg Plus Date Menarche Onset Age 0911/05/2017 false false 13 Genetic Screening And Infection History Question Response Note Patient's Age Will Be 35 Years Or Older At Estim ated Date of Delivery false Thalassemia (Irish, Afghan, Mediterranean, Or Background): MCV < 80 false Neural Tube Defect (Meningomyelocele, Spina Bifi da, Or Anencephaly) false Congenital Heart Defect false Down Syndrome false Andrea-Sachs (eg, Adventist, Cajun, Sri Lankan-Guamanian) f alse Dana Disease false Sickle Cell Disease Or Trait () false Hemophilia Or Other Blood Disorders false Muscular Dystrophy false Cystic Fibrosis false [place]'s Chorea false Mental Retardation/Autism false Other Inherited Genetic Or Chromosomal Disorder false Maternal Metabolic Disorder (eg, Type 1 Diabetes , PKU) false Patient Or Baby's Father Had A Child With Defects Not Listed Above false Recurrent Loss, Or A Stillbirth false Medications (including Suppl ements, Vitamins, Herbs, OTC Drugs), Illicit/Recreational Drugs, Alcohol false If Yes, Agent(s) And Strength/Dosage false Any Other Genetic History false Live With Someone With TB Or Exposed To TB false Patient Or Partner Has History Of Genital Herpes false Rash Or Viral Illness Since Last Menstrual Perio d false History Of STD, Gonorrhea, Chlamydia, HPV, Syphi lis false Other Infection History false History of HIV false History of Hepatitis false Prior GBS-infected child false Delivery Information Delivery Date Delivery Type Labor Anesthesia Weeks Gestation Incision Type Labor Labor Length Hrs Delivered By Post Complications Tubal Sterilization Discharge Date Comments Discharge Information Feeding Method Contraceptive Method Maternal HG B and HCT Levels
--- OUTSIDE RECORDS SUMMARY | 2024-12-16 02:20 | XMS_ITS | Patient Health Record ---
Author Organization [facility] Address [address] [place] [address] Care Team Providers Care Bingo Checker Name Role Phone Eros Bennett Primary Care Provider [phone] Paige Garcia Unavailable [phone] Allergies No Known Allergies Reason For Referral No Information Medications Medication SIG (Take, Route, Frequency, Duration) Notes Start Date End Date Status Flonase 50 MCG/ACT 1 spray in each nost ril Nasally Once a day; Duration: 30 days Active hydrOXYzine Pamoate 50 MG TAKE 1 CAPSULE BY MOUTH TWICE A DAY; Duration: 30 Active Gabapentin 600 MG 1 tablet Orally thre e times daily; Duration: 30 day(s) 03/04/2020 Active Ibuprofen 800 MG TAKE 1 TABLET BY DAVID TH 3 TIMES A DAY WITH FOOD OR MILK NEEDED; Duration: 30 Active FLUoxetine HCl 40 MG TAKE 1 CAPSULE BY M OUTH EVERY DAY (TAKE WITH 20MG CAP FOR A TOTAL OF 60MG DAILY); Duration: 30 Active FLUoxetine HCl 20 MG TAKE 1 CAPSULE BY M OUTH EVERY DAY (TAKE WTIH 40MG CAPSULE FOR A TOTAL OF 60MG DAILY); Duration: 30 Active Famotidine 20 MG TAKE 1 TABLET BY DAVID TH TWICE A DAY; Duration: 30 Active Vistaril 50 MG 1 capsule as needed Orally twice a day; Duration: 30 day(s) Active Social History Tobacco Use: Social History Observation Description Date Details (start date - stop date) Current Smoker NA - NA Dont use, Tobacco Use/Smoking Question Answer Notes Are you a current every day smoker Tobacco Control (Standard) Question Answer Notes Tobacco use: Current every day smoker Additional Findings: Tobacco user Moderate cigar ette smoker (10-19 cigs/day) Section Notes: Client quit cold turkey Client quit cold turkey Client quit cold turkey Client quit cold turkey Client quit cold turkey Client quit cold turkey Client quit cold turkey Client quit cold turkey Client quit cold turkey Client quit cold turkey Client quit cold turkey Client quit cold turkey Client quit cold turkey Client quit cold turkey Client quit cold turkey Client quit cold turkey Client quit cold turkey Client quit cold turkey Problems Problem Type SNOMED Code ICD Code Onset Dates Problem Status W/U Status Risk Notes Problem Dysthymia (18949207) Dysthymic disorder (F34.1) 7 Active confirmed Problem Affective psychosis (081644981) Unspecified mood [affective] disorder (F39) Active confirmed Problem Anxiety disorder (093398945) Anxiety disorder, unspecified (F41.9) Active confirmed Problem Posttraumatic stress disorder (21871844) Post-traumatic stress disorder, chronic (F43.12) Active confirmed Problem Chronic pain (88661101) Other chronic pain (G89.29) Active confirmed Problem Tobacco dependence (01020799) Tobacco dependence (F17.200) Active confirmed Problem Constipation (32245934) Constipation (K59.00) Active confirmed Problem Neuropathy (919454316) Neuropathy (G62.9) Active confirmed Problem Obese class I (finding) (499085828750463) Obesity (BMI 30.0-34.9) (E66.9) Active confirmed Problem 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) (0143087516076632 7) Neuropathy of both upper extremities (G56.93) Active confirmed Plan Of Treatment Pending Test Test Name Order Date Hemoglobin A1c* 10/18/2018 Insurance Providers Payer Name Payer Address Payer Phone Subscriber Number Group Number Insured Name Patient Relationship to Insured Coverage Start Date Coverage End Date [facility] [address] [place] [address] [id number] Norma Reese Self - patient is the insured 4 [employer] [address] [place] [phone] [id number] Norma Reese Self - patient is the insured 9 0 [employer] [address] [place] [phone] [id number] Norma Reese Self - patient is the insured 0 0 [employer] [address] [place] [address] [phone] [id number] Norma Reese Self - patient is the insured 0 4 [employer] Telehealth [address] [place] [phone] [id number] Norma Reese Self - patient is the insured 0 4 [employer] FFS [address] [address] [place] [address] [phone] [id number] Norma Reese Self - patient is the insured 0 4 Medical (General) History Medical History History ICD Code PTSD Bipolar disorder Anger problems PMDD Crhon's Surgical History Surgery Date(Month/Year) tonsillectomy and adenoid removal 11 y/o child 2018 Hospitalization History Reason Date(Month/Year) Crohn's 2016
--- OUTSIDE RECORDS SUMMARY | 2024-12-16 02:20 | XMS_ITS | Clinical Summary ---
Author Organization [facility] Address [address] [place] [address] Phone Care Team Providers Care Energy Risk Management Analyst Name Role Phone Castillo Arteaga MD Primary Care Provider [phone] Allergies No known active allergies Medications * This document contains information received from the source organization and may not represent a complete record from that organization. ketoconazole (NIZORAL) 2 % Shampoo Apply daily. When showering Active Active Problems Problem Noted Date Diagnosed Date Stimulant withdrawal 08/21/2023 CAD (coronary artery disease) 08/21/2023 Methamphetamine abuse [place] (myocardial infarction) Carpal tunnel syndrome Anxiety Depression Marijuana abuse Social History Tobacco Use Types Packs/Day Years Used Date Smoking Tobacco: Every Day Smokeless Tobacco: Never Alcohol Use Standard Drinks/Week Comments Never 0 (1 standard drink = 0.6 oz pur e alcohol) [facility] Utilities Answer Date Recorded In the past 12 months has [employer], oil, or water Synchronized threatened to shut off services in your home? Patient declined 08/21/2023 Social Connection and Isolation Panel Answer Date Recorded In a typical week, how many times do you talk on the phone with family, friends, or neighbors? Patient declined 08/21/2023 How often do you get togethe r with friends or relatives? Patient declined 08/21/2023 How often do you attend orthodox or scientologist serv ices? Patient declined 08/21/2023 Do you belong to any clubs o r organizations such as orthodox groups, unions, fraternal or athletic groups, or school groups? Patient declined 08/21/2023 How often do you attend meet ings of the clubs or organizations you belong to? Patient declined 08/21/2023 Are you , , di vorced, , never , or living with a partner? Patient declined 08/21/2023 AUDIT-C Answer Date Recorded Q1: How often do you have a drink containing alc ohol? Patient declined 08/21/2023 Q2: How many drinks containi ng alcohol do you have on a typical day when you are drinking? Patient declined 08/21/2023 Q3: How often do you have si x or more drinks on one occasion? Patient declined 08/21/2023 Overall Financial Resource Strain (CARDIA) Answe r Date Recorded How hard is it for you to pa y for the very basics like food, housing, medical care, and heating? Patient declined 08/21/2023 [facility] - Occupational Stress Questionnaire Answer Date Recorded Do you feel stress - tense, restless, nervous, or anxious, or unable to sleep at night because your mind is troubled all the time - these days? Patient declined 08/21/2023 Exercise Vital Sign Answer Date Recorde d On average, how many days pe r week do you engage in moderate to strenuous exercise (like a brisk walk)? Patient declined On average, how many minutes do you engage in exercise at this level? Patient declined 08/21/2023 Hunger Vital Sign Answer Date Recorded Within the past 12 months, y ou worried that your food would run out before you got the money to buy more. Patient declined Within the past 12 months, t he food you bought just didn't last and you didn't have money to get more. Patient declined PRAPARE - Transportation Answer Date Re corded In the past 12 months, has l ack of transportation kept you from medical appointments or from getting medications? Patient declined 08/21/2023 In the past 12 months, has l ack of transportation kept you from meetings, work, or from getting things needed for daily living? Patient declined 08/21/2023 Housing Stability Vital Sign Answer Mikey e Recorded In the last 12 months, was t here a time when you were not able to pay the mortgage or rent on time? Patient declined 08/21/19 24 In the past 12 months, how m any times have you moved where you were living? 2 08/21/2023 At any time in the past 12 m [facility], were you homeless or living in a care home (including now)? Patient declined 08/21/2023 Comments Unknown Sex and Gender Information Value Date Recorded Sex Assigned at Not on file Legal Sex Female 5:26 PM CDT Gender Identity Not on file Sexual Orientation Not on file Last Filed Vital Signs Vital Sign Reading Time Taken Comments Blood Pressure 103/62 08/24/2023 8:05 AM CDT Pulse 77 08/23/2023 8:00 PM CDT Temperature 36.3 C (97.4 F) 08/24/2023 8:05 AM CDT Respiratory Rate 16 08/24/2023 8:05 AM CDT Oxygen Saturation 100% 08/24/2023 8:05 AM CDT Inhaled Oxygen Concentration - - Weight 74.8 kg (165 lb) 08/21/2023 5:00 PM CDT Height 160 cm (5' 3) 08/21/2023 5:00 PM CDT Body Mass Index 29.23 08/21/2023 5:00 PM CDT Plan of Treatment Health Maintenance Due Date Last Done Comments Hepatitis C Virus (HCV) Screening 1984 Mammogram 1984 Pap Smear 2005 Human Papillomavirus (HPV) Immunization (1 - 3-dose SCDM series) 06/03/2011 Cervical Cancer Screening (CCS) 2014 HPV/Cotest 2014 Pneumococcal Immunization Combined (2 of 2 - PCV) 12/02/2014 12/02/2013 Discussion re Starting/Frequency of Mammograms 2024 Influenza Immunization (#1) 2024 SARS-COV-2 Immunization ( - season) 2024 Respiratory Syncytial Virus (RSV) Immunization (Adult) (1 - 1-dose 75+ series) 06/03/2059 Hepatitis B Immunization Completed 997, 11/29/1995, 09/20/1995 DTaP/Tdap/Td Immunization Discontinued 2018, 08/30/1999, 09/27/1991, Additional history exists TdaP Immunization Completed 07/16/2018 Meningococcal Immunization (ACWY) Aged Out No longer eligible based on patient's age to complete this topic Rotavirus Immunization Aged Out No lo nger eligible based on patient's age to complete this topic Insurance MEDICAID [place] Advance Directives * Full Code (Latest Code Status on File) Date Activated Date Inactivated Comments 08/21/2023 6:32 PM 08/24/2023 1:59 PM CPR-Full Surendra atment: FULL ARREST: Attempt Resuscitation/CPR wit intubation and mechanical ventilation. PRE-ARREST: Use entire range of life support measures to stabilize the patient. Care Teams Energy Risk Management Analyst Relationship Specialty Start Date End Date Castillo Arteaga MD [address] [place] [address] PCP - General Urology 05/25/21
[2024-12-16 02:22] VITALS: BP 122/82; PULSE 77; RESP 18; TEMP 36.3; O2SAT 100
[2024-12-16 02:23] VITALS: BP 122/82; PULSE 76; RESP 18; O2SAT 100
--- NOTE | 2024-12-16 02:27 | ED.URI ---
HPI - URI/Sore Throat General Chief Complaint: Upper Respiratory Infection Stated Complaint: Shortness of breath Time Seen by Provider: 12/16/24 02:21 Source: patient Mode of arrival: ambulatory Limitations: no limitations History of Present Illness HPI Narrative: This is a 39-year-old female with history of CAD due to cocaine use presents the ED for flu-like symptoms. Patient states that for the past 2 days, she has been having a cough productive of clear to green sputum. She has had a subjective fever. Also notes some right midback pain. She states that she had similar symptoms several years ago when she was diagnosed with bilateral pneumonia. She has had sick contacts at work that did test positive for COVID. Related Data Home Medications ?Medication ?Instructions ?Recorded ?Confirmed ?Last Taken ?Type fluoxetine 40 mg capsule (Prozac) 20 mg PO DAILY 01/10/21 04/20/21 Unknown History famotidine 20 mg tablet 20 mg PO DAILY 04/20/21 04/20/21 Unknown History gabapentin 600 mg tablet 600 mg PO TID 04/20/21 04/20/21 Unknown History Allergies Allergy/AdvReac Type Severity Reaction Status Date / Time No Known Allergies Allergy Verified 04/20/21 10:45 Review of Systems Review of Systems: Gen.: Denies fevers or chills Eyes: Denies eye pain or visual change ENT: As per HPI Respiratory: As per HPI CV: Denies chest pain or palpitations GI: Denies abdominal pain nausea, emesis or diarrhea denies burning, urgency, frequency or hematuria Musculoskeletal: Denies back pain or muscle pain Neuro: Denies numbness, tingling, weakness or focal weakness Skin: Denies rash Except as documented, all other systems reviewed and negative [facility] Past Medical History Medical History No significant past medical history Surgical History Surgical History No significant past surgical history Social History Social History Alcohol use details: occassional Substance use: never Living arrangements: with family Occupation/Education: occupation Exam Narrative: APPEARANCE: Mild distress, nontoxic, resting in bed EYES: EOMI HEENT: Normocephalic, atraumatic, OMM RESPIRATORY: No respiratory distress Clear to auscultation bilaterally with no rhonchi wheezing or rales. CARDIOVASCULAR: Regular rate and rhythm without murmurs rubs or gallops. ABDOMINAL: Soft, nontender, nondistended, no rebound or guarding MUSCULOSKELETAl: Moves all extremities. No clubbing, cyanosis or edema. NEURO: Awake and alert. Following commands, speech normal, no focal deficits SKIN:: Warm, dry. No rashes lesions or abrasions PSYCHIATRIC: Normal affect/mood, Course Vital Signs Vital signs: Vital Signs Temperature 97.4 F L 12/16/24 02:22 Pulse Rate 77 12/16/24 02:22 Respiratory Rate 18 12/16/24 02:22 Blood Pressure 122/82 12/16/24 02:22 Pulse Oximetry 100 12/16/24 02:22 Oxygen Delivery Room Air 12/16/24 02:22 Temperature 97.4 F L 12/16/24 02:22 Pulse Rate 73 12/16/24 03:31 Respiratory Rate 19 12/16/24 03:31 Blood Pressure 105/70 12/16/24 03:31 Pulse Oximetry 99 12/16/24 03:31 Oxygen Delivery Room Air 12/16/24 02:45 MDM - URI/Sore Throat MDM Narrative Medical decision making narrative: 39-year-old female Presenting for flu-like symptoms. On initial evaluation patient was in no acute distress afebrile, hemodynamic stable. 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 COVID/flu/RSV negative. Notable imaging findings: Chest x-ray showed possible right lower lobe infiltrate EKG without concerning findings. Patient has slight improvement of her body aches with the Toradol. I suspect that she does have a pneumonia causing her symptoms. She was given the 1st dose of Augmentin and doxycycline. She will be given a course of these. She was advised follow-up with her PCP in the next week for re-evaluation. Patient was agreeable to this plan. Given strict return precautions. Medical Records Attestation: I reviewed the patient's medical records. Lab Data Attestation: I reviewed the patient's lab results. 12/16/24 02:29 12/16/24 02:29 Labs: Lab Results 12/16/24 12/16/24 Range/Units 02:29 02:43 WBC 9.9 (4.5-10.0) K/mm3 RBC 4.25 (4.2-5.4) M/mm3 Hgb 12.6 (12.0-15.0) g/dL Hct 37.8 (37.0-47.0) % MCV 88.9 (80-100) fl MCH 29.6 (26-34) pg MCHC 33.3 (32-36) g/dl RDW 12.9 (11.5-14.5) % Plt Count 287 (150-375) k/mm3 MPV 10.3 (7.4-10.4) fl Immature Gran % (Auto) 0.2 (0-0.5) % Neut % (Auto) 58.0 (45.5-73.1) % Lymph % (Auto) 32.9 (18.3-44.2) % [place] % (Auto) 6.8 (2.6-8.5) % Eos % (Auto) 1.1 (0-4.4) % Baso % (Auto) 1.0 (0.2-1.2) % Lymph # (Auto) 3.26 H (0.9-3.2) K/mm3 [place] # (Auto) 0.7 H (0.1-0.6) K/mm3 Eos # (Auto) 0.1 (0-0.3) K/mm3 Baso # (Auto) 0.1 (0.0-0.1) K/mm3 Abs Immat Gran (auto) 0.02 (0.00-0.031) K/mm3 Absolute Neuts (auto) 5.8 (1.3-6.7) K/mm3 Absolute Nucleated RBC 0.000 (0.0-0.012) K/mm3 Nucleated RBC % 0.0 (0.0-0.2) % Sodium 138 (137-145) mmol/L Potassium 3.7 (3.4-5.0) mmol/L Chloride 107 (98-107) mmol/L Carbon Dioxide 22 (22-30) mmol/L Anion Gap 9 (4-12) mmol/L BUN 15 (7-17) mg/dL Creatinine 0.81 (0.7-1.0) mg/dL Estim Creat Clear Calc 78 ml/min Estimated GFR > 60 (59 - ) Glucose 104 (65-110) mg/dL Calcium 8.2 L (8.4-10.2) mg/dL POC Urine HCG, Qual Negative (Negative) Influenza A (RT-PCR) Negative (Negative) Influenza B (RT-PCR) Negative (Negative) RSV (RT-PCR) Negative (Negative) SARS-CoV-2 RNA (RT-PCR) Negative (Negative) Imaging Data Attestation: I personally reviewed and interpreted this imaging study as follows: My impression: Chest x-ray: Possible right lower lobe infiltrate ECG Data EKG #1: Attestation: I personally reviewed and interpreted this ECG as follows: ECG completion date: 12/16/24 ECG completion time: 02:30 Interpretation: Significant artifact, normal sinus rhythm, normal axis, normal intervals, no acute ST or T-wave changes Discharge Plan Discharge Clinical Impression: CAP (community acquired pneumonia) Qualifiers: Laterality: right Lung location: lower lobe of lung Qualified Code(s): J18.9 - Pneumonia, unspecified organism Patient Disposition: Home Condition: Stable Instructions: Antibiotic Form, Pneumonia (ED) Additional Instructions: You tested negative for COVID. You likely have pneumonia. Your given a prescription for Augmentin and doxycycline, take this as prescribed. Follow up with her PCP in the next week for re-evaluation. Return to the ED for any new or worsening symptoms. For pain, discomfort or temperature greater than or equal to 100.8 ?F please alternate the following 2 medications as needed. First medication- acetaminophen/Tylenol- 1000mg every 6-8 hours as needed for above indications. Second medication- ibuprofen/Motrin-600mg every 6-8 hours as needed for above indication. Patient Language: [place] Prescriptions: New amoxicillin-pot clavulanate 875-125 mg tablet 1 tablet PO Q12H Qty: 10 0RF doxycycline hyclate 100 mg capsule 100 mg PO Q12H Qty: 10 0RF No Action fluoxetine [Prozac] 40 mg Capsule 20 mg PO DAILY gabapentin 600 mg Tablet 600 mg PO TID famotidine 20 mg Tablet 20 mg PO DAILY Follow-up/Referrals: Geovani Langford MD [Primary Care Provider, Family Practice] Stand Alone Forms: Work/School Release IP
--- NOTE | 2024-12-16 02:28 | ECG_ITS ---
Test Date: 2024-12-16 02:30:04 Measurements Intervals [place] Rate: 79 P: 31 [place]: 143 QRS: 48 QRSD: 86 T: 59 QT: 388 QTc: 446 Interpretive Statements SINUS RHYTHM No previous ECG available for comparison Electronically Signed On 12-17-2024 10:44:09 OUTSIDE MACHINIST SUPERVISOR by Bharathi Lopez M.D.
[2024-12-16] MEDS: KETOROLAC 30 MG/ML VIAL (*BKC) IV PUSH (02:37)
[2024-12-16 02:42] LABS: Hematocrit 37.8 % (37.0-47.0); Hemoglobin 12.6 g/dL (12.0-15.0); Immature Granulocyte Percent A 0.2 % (0-0.5); Lymphocytes Absolute Auto 3.26 K/mm3 (0.9-3.2); Mean Corpuscular HGB Conc 33.3 g/dl (32-36); Mean Corpuscular Hemoglobin 29.6 pg (26-34); Mean Corpuscular Volume 88.9 fl (80-100); Nucleated Red Blood Cells Absolute Auto 0.000 K/mm3 (0.0-0.012); Nucleated Red Blood Cells Perc 0.0 % (0.0-0.2); Platelet Count Result 287 k/mm3 (150-375); Red Blood Count 4.25 M/mm3 (4.2-5.4); White Blood Count 9.9 K/mm3 (4.5-10.0)
[2024-12-16 02:45] LABS: BEDSIDEPREGUCG Negative (Negative)
[2024-12-16 02:46] VITALS: BP 108/61; PULSE 71; RESP 20; O2SAT 100
[2024-12-16 02:58] LABS: Anion Gap 9 mmol/L (4-12); Blood Urea Nitrogen 15 mg/dL (7-17); Calcium 8.2 mg/dL (8.4-10.2); Carbon Dioxide 22 mmol/L (22-30); Chloride 107 mmol/L (98-107); Estimated CRCL calculation 78 ml/min; Estimated Glomerular Filt Rate > 60; Glucose 104 mg/dL (65-110); Potassium 3.7 mmol/L (3.4-5.0); Sodium 138 mmol/L (137-145)
[2024-12-16 03:01] VITALS: BP 107/68; PULSE 66; RESP 20; O2SAT 99
[2024-12-16 03:18] LABS: Influenza A QL RT-PCR Negative (Negative); Influenza B QL RT-PCR Negative (Negative); RSV RNA, RT-PCR Negative (Negative); SARS-CoV-2 RNA PCR Negative (Negative)
[2024-12-16 03:31] VITALS: BP 105/70; PULSE 73; RESP 19; O2SAT 99
[2024-12-16] MEDS: DOXYCYCLINE HYCLATE 100 MG TABLET PO (03:32)
== END 2024-12-16 03:45 | disposition home or self-care (01) ==
PROVIDERS: Emergency Provider Student in an Organized Health Care Education/Training Program; PCP Emergency Medicine
DX: J18.9 Pneumonia, unspecified organism (principal); Z20.822 Contact with and (suspected) exposure to COVID-19; I25.10 Atherosclerotic heart disease of native coronary artery without angina pectoris
CPT/HCPCS: 36415; 71046; 80048; 81025; 85025; 87637; 93005; 96374; 99284; A9270; J1885